=== PATIENT | female | born 1965 | race Caucasian/White ===

== ENCOUNTER 2018-01-24 16:26 | Outpatient (CLI) | payer OTHER ==
--- NOTE | 2018-01-24 16:56 | RAD ---
THREE VIEWS RIGHT ANKLE: 01/24/18 HISTORY: Twisting right ankle. Ankle pain. [id number]. AP, lateral and oblique views right ankle is obtained. No evidence of right ankle fractures, subluxations, or bony lesions seen. There is a growth arrest li ne in the distal aspect of the right tibia. IMPRESSION: No evidence of acute right ankle fracture. There does appear to be some soft tissue swelling lateral to the right ankle. POS: [facility]
== END 2018-01-24 16:27 | disposition home or self-care (01) ==
LOC: SCSRAD 16:26
PROVIDERS: ATTEND Chiropractor
DX: S93.401A Sprain of unspecified ligament of right ankle, initial encounter (principal)